=== PATIENT | female | born 1930 | race Caucasian/White ===

== ENCOUNTER 2016-04-29 21:57 | Inpatient (IN) | payer BC, MEDICAID ==
[~2016-04-29] VITALS: Ht 154.9 cm; Wt 70.0 kg
[2016-04-29] MEDS ORDERED: ACETAMINOPHEN 325 MG TAB ONE (22:18)
[2016-04-29] MEDS ORDERED: SODIUM CHLORIDE 0.9% 1,000 ML ONE (22:27)
[2016-04-29] MEDS ORDERED: CEFTRIAXONE 1 GM VIAL ONE (23:31)
[2016-04-29] MEDS ORDERED: SODIUM CHLORIDE 0.9% 250 ML IV ONE (23:31)
[2016-04-29] MEDS ORDERED: AZITHROMYCIN 500 MG VIAL IV ONE (23:31)
[2016-04-29] MEDS ORDERED: SODIUM CHLORIDE 0.9% 100 ML IV ONE (23:32)
[2016-04-29] MEDS ORDERED: LACT RINGERS 1,000 ML IV SCH (23:45)
[2016-04-29] MEDS ORDERED: BISACODYL 10 MG SUPP RECTAL PRN (23:45)
[2016-04-29] MEDS ORDERED: MAG HYDROX 30 ML UDC PO PRN (23:45)
[2016-04-29] MEDS ORDERED: SALINE FLUSH 10 ML FLUSH PRN (23:45)
[2016-04-29] MEDS ORDERED: BISACODYL EC 5 MG TAB PO PRN (23:45)
[2016-04-29] MEDS ORDERED: ALU/MAG/SIM 30 ML UDC PO PRN (23:45)
[2016-04-30] VITALS (8 sets, daily range): BP systolic 124–150; RESP 17–22; TEMP 97.4–98.5; Ht 154.9 cm; Wt 70.0 kg
[2016-04-30] MEDS ORDERED: PHARMACY TO DOSE ZOSYN IV SCH (00:15)
[2016-04-30] MEDS ORDERED: PHARMACY TO DOSE VANCOMYCIN IV SCH (00:15)
[2016-04-30] MEDS: NEB-XOPENEX 1.25 MG/3 ML INH SCH ×5 (00:30→23:30)
[2016-04-30] MEDS: NEB-ATROVENT INH SCH ×6 (03:00→23:30)
[2016-04-30] MEDS ORDERED: VANCOMYCIN 1,250 MG in SODIUM CHLORIDE 0.9% 250 ML IV ONE (03:50)
[2016-04-30] MEDS ORDERED: LACT RINGERS 1,000 ML IV SCH (04:40)
[2016-04-30] MEDS: PIPERACIL/TAZO 2.25GM/50ML 50 ML IV SCH ×4 (05:54→23:58)
[2016-04-30] MEDS: SODIUM CHLORIDE 0.9% FLUSH BAG 500 ML IV SCH (05:54)
[2016-04-30] MEDS: SALINE FLUSH 10 ML FLUSH SCH ×2 (08:00→20:00)
[2016-04-30] MEDS: ENOXAPARIN 30 MG/0.3 ML SYR SUBQ SCH (09:00)
[2016-04-30] MEDS ORDERED: LORAZEPAM 0.5 MG TAB PO PRN (12:15)
[2016-04-30] MEDS ORDERED: ARTIF TEARS OP SOLN 0.4ML EYE EACH PRN (12:15)
[2016-04-30] MEDS ORDERED: GERI LANTA PO PRN (12:15)
[2016-04-30] MEDS ORDERED: [UNRECOGNIZED DRUG - OTHER] RC PRN (12:15)
[2016-04-30] MEDS ORDERED: HYDROCORT TOPICAL PRN (12:15)
[2016-04-30] MEDS ORDERED: ACETAMINOPHEN 325 MG TAB PO PRN (12:15)
[2016-04-30] MEDS ORDERED: MISSING DOSE XX ONE (18:10)
[2016-04-30] MEDS: CILOSTAZOL 100 MG TAB PO SCH (20:01)
[2016-04-30] MEDS: POLYETHYLENE GLYCOL 17 GM PACKET PO SCH (20:01)
[2016-04-30] MEDS: PREGABALIN 75 MG CAP PO SCH (20:01)
[2016-04-30] MEDS: FAMOTIDINE 20 MG TAB PO SCH (20:01)
[2016-04-30] MEDS: OXYCODONE 5 MG TAB PO PRN (21:19)
[2016-05-01] VITALS (35 sets, daily range): BP systolic 117–173; RESP 17–18; TEMP 97.9–98.5
[2016-05-01] MEDS: NEB-ATROVENT INH SCH ×6 (02:40→22:57)
[2016-05-01] MEDS: SODIUM CHLORIDE 0.9% FLUSH BAG 500 ML IV SCH (05:12)
[2016-05-01] MEDS: PIPERACIL/TAZO 2.25GM/50ML 50 ML IV SCH (05:16)
[2016-05-01] MEDS: NEB-XOPENEX 1.25 MG/3 ML INH SCH ×4 (07:08→22:57)
[2016-05-01] MEDS: SALINE FLUSH 10 ML FLUSH SCH ×2 (08:00→20:00)
[2016-05-01] MEDS: CILOSTAZOL 100 MG TAB PO SCH ×2 (09:27→20:33)
[2016-05-01] MEDS: PREGABALIN 75 MG CAP PO SCH ×2 (09:27→20:33)
[2016-05-01] MEDS: LORATADINE 10 MG TAB PO SCH (09:27)
[2016-05-01] MEDS: ENOXAPARIN 30 MG/0.3 ML SYR SUBQ SCH (09:28)
[2016-05-01] MEDS ORDERED: VANCOMYCIN 1,000 MG in SODIUM CHLORIDE 0.9% 250 ML IV ONE (09:55)
[2016-05-01] MEDS ORDERED: DILTIAZEM 125 MG in DEXTROSE 125 ML IV ONE (10:10)
[2016-05-01] MEDS: CARDIZEM 1 MG/ML DRIP 125 ML IV SCH (11:12)
[2016-05-01] MEDS ORDERED: METOPROLOL XL 25 MG TAB PO SCH (11:15)
[2016-05-01] MEDS ORDERED: PHARMACY TO DOSE ANTIBIOTIC XX SCH (11:30)
[2016-05-01] MEDS ORDERED: ENOXAPARIN 30 MG/0.3 ML SYR SUBQ ONE (12:05)
[2016-05-01] MEDS: PIPERACIL/TAZO 3.375GM/50ML 50 ML IV SCH ×2 (14:45→19:46)
[2016-05-01] MEDS ORDERED: MISSING DOSE XX ONE (20:25)
[2016-05-01] MEDS: POLYETHYLENE GLYCOL 17 GM PACKET PO SCH (20:33)
[2016-05-01] MEDS: FAMOTIDINE 20 MG TAB PO SCH (20:35)
[2016-05-01] MEDS: METOPROLOL TART 50 MG TAB PO SCH ×2 (20:39→20:42)
[2016-05-01] MEDS: OXYCODONE 5 MG TAB PO PRN (20:40)
[2016-05-02] VITALS (57 sets, daily range): BP systolic 101–173; RESP 18; TEMP 97.5–98
[2016-05-02] MEDS: PIPERACIL/TAZO 3.375GM/50ML 50 ML IV SCH ×2 (01:22→04:57)
[2016-05-02] MEDS ORDERED: LORAZEPAM 2 MG/ML VIAL ONE (01:35)
[2016-05-02] MEDS ORDERED: LORAZEPAM 2 MG/ML VIAL IV ONE (01:35)
[2016-05-02] MEDS: NEB-ATROVENT INH SCH ×6 (02:57→23:14)
[2016-05-02] MEDS: HALOPERIDOL 5 MG/ML VIAL IV PRN ×4 (04:46→22:06)
[2016-05-02] MEDS: SODIUM CHLORIDE 0.9% FLUSH BAG 500 ML IV SCH (05:01)
[2016-05-02] MEDS ORDERED: HALOPERIDOL 5 MG/ML VIAL IV ONE (06:35)
[2016-05-02] MEDS: SALINE FLUSH 10 ML FLUSH SCH ×2 (08:00→20:00)
[2016-05-02] MEDS: NEB-XOPENEX 1.25 MG/3 ML INH SCH ×4 (08:01→23:14)
[2016-05-02] MEDS: LORATADINE 10 MG TAB PO SCH (08:46)
[2016-05-02] MEDS: CILOSTAZOL 100 MG TAB PO SCH ×2 (08:46→20:31)
[2016-05-02] MEDS: PREGABALIN 75 MG CAP PO SCH (08:47)
[2016-05-02] MEDS: METOPROLOL TART 50 MG TAB PO SCH (08:47)
[2016-05-02] MEDS ORDERED: ENOXAPARIN 60 MG/0.6 ML SYR SUBQ SCH ×2 (09:00→21:00)
[2016-05-02] MEDS ORDERED: METOPROLOL TART 50 MG TAB PO ONE (11:20)
[2016-05-02] MEDS ORDERED: MISSING DOSE XX ONE (14:05)
[2016-05-02] MEDS: CARDIZEM 1 MG/ML DRIP 125 ML IV SCH (14:26)
[2016-05-02] MEDS: CEFTRIAXONE 1 GM in SODIUM CHLORIDE 0.9% 50 ML IV SCH (14:35)
[2016-05-02] MEDS ORDERED: ALPRAZOLAM 0.25 MG TAB PO PRN (17:10)
[2016-05-02] MEDS: APIXABAN 5 MG TAB PO SCH (20:31)
[2016-05-02] MEDS: METOPROLOL TART 100 MG TAB PO SCH (20:31)
[2016-05-02] MEDS: FAMOTIDINE 20 MG TAB PO SCH (20:31)
[2016-05-02] MEDS: POLYETHYLENE GLYCOL 17 GM PACKET PO SCH (20:31)
[2016-05-03] VITALS (32 sets, daily range): BP systolic 96–171; RESP 16–22; TEMP 96.8–98
[2016-05-03] MEDS: NEB-ATROVENT INH SCH ×6 (02:13→23:10)
[2016-05-03] MEDS: HALOPERIDOL 5 MG/ML VIAL IV PRN (03:28)
[2016-05-03] MEDS ORDERED: ZIPRASIDONE 20 MG INJ IM ONE (03:50)
[2016-05-03] MEDS ORDERED: METOPROLOL 5 MG/5 ML VIAL IV ONE ×4 (04:45→05:00)
[2016-05-03] MEDS: SODIUM CHLORIDE 0.9% FLUSH BAG 500 ML IV SCH (05:24)
[2016-05-03] MEDS: SALINE FLUSH 10 ML FLUSH SCH ×2 (07:18→20:50)
[2016-05-03] MEDS: PIPERACIL/TAZO 3.375GM/50ML 50 ML IV SCH (07:27)
[2016-05-03] MEDS: NEB-XOPENEX 1.25 MG/3 ML INH SCH ×4 (07:42→23:10)
[2016-05-03] MEDS: APIXABAN 5 MG TAB PO SCH ×2 (08:43→20:49)
[2016-05-03] MEDS: METOPROLOL TART 100 MG TAB PO SCH ×2 (08:43→20:49)
[2016-05-03] MEDS: CILOSTAZOL 100 MG TAB PO SCH ×2 (08:43→20:49)
[2016-05-03] MEDS: LORATADINE 10 MG TAB PO SCH (08:43)
[2016-05-03] MEDS: CEFTRIAXONE 1 GM in SODIUM CHLORIDE 0.9% 50 ML IV SCH (08:43)
[2016-05-03] MEDS: DILTIAZEM CD 180 MG CAP PO SCH (11:06)
[2016-05-03] MEDS: SACCHA BOULARDII 250MG CAP PO SCH ×2 (12:10→20:48)
[2016-05-03] MEDS: FAMOTIDINE 20 MG TAB PO SCH (20:48)
[2016-05-04] VITALS (7 sets, daily range): BP systolic 110–145; RESP 18–22; TEMP 97.3–98.9
[2016-05-04] MEDS: NEB-ATROVENT INH SCH ×6 (02:56→22:48)
[2016-05-04] MEDS: SODIUM CHLORIDE 0.9% FLUSH BAG 500 ML IV SCH (05:37)
[2016-05-04] MEDS: NEB-XOPENEX 1.25 MG/3 ML INH SCH ×4 (07:15→22:48)
[2016-05-04] MEDS: SALINE FLUSH 10 ML FLUSH SCH ×2 (07:57→20:54)
[2016-05-04] MEDS: SACCHA BOULARDII 250MG CAP PO SCH ×2 (08:41→20:54)
[2016-05-04] MEDS: APIXABAN 5 MG TAB PO SCH ×2 (08:41→20:54)
[2016-05-04] MEDS: CILOSTAZOL 100 MG TAB PO SCH ×2 (08:41→20:53)
[2016-05-04] MEDS: LORATADINE 10 MG TAB PO SCH (08:41)
[2016-05-04] MEDS: METOPROLOL TART 100 MG TAB PO SCH ×2 (08:41→20:53)
[2016-05-04] MEDS: CEFTRIAXONE 1 GM in SODIUM CHLORIDE 0.9% 50 ML IV SCH (08:41)
[2016-05-04] MEDS: DILTIAZEM CD 180 MG CAP PO SCH (08:41)
[2016-05-04] MEDS ORDERED: SODIUM CHLORIDE 0.9% 1,000 ML IV SCH ×2 (13:35→18:10)
[2016-05-04] MEDS ORDERED: SODIUM CHLORIDE 0.9% 500 ML IV ONE (18:10)
[2016-05-04] MEDS: FAMOTIDINE 20 MG TAB PO SCH (20:53)
[2016-05-05] MEDS: NEB-ATROVENT INH SCH ×6 (03:16→22:45)
[2016-05-05 04:03] VITALS: BP_SYST 155; RESP 17; TEMP 97.3
[2016-05-05] MEDS: SODIUM CHLORIDE 0.9% FLUSH BAG 500 ML IV SCH (06:00)
[2016-05-05] MEDS: NEB-XOPENEX 1.25 MG/3 ML INH SCH ×4 (06:22→22:46)
[2016-05-05 07:34] VITALS: BP_SYST 149; RESP 18; TEMP 98.2
[2016-05-05] MEDS: SALINE FLUSH 10 ML FLUSH SCH ×2 (08:24→21:17)
[2016-05-05] MEDS: CILOSTAZOL 100 MG TAB PO SCH ×2 (08:25→21:15)
[2016-05-05] MEDS: METOPROLOL TART 100 MG TAB PO SCH ×2 (08:25→21:15)
[2016-05-05] MEDS: LORATADINE 10 MG TAB PO SCH (08:25)
[2016-05-05] MEDS: SACCHA BOULARDII 250MG CAP PO SCH ×2 (08:25→21:15)
[2016-05-05] MEDS: APIXABAN 5 MG TAB PO SCH ×2 (08:25→21:15)
[2016-05-05] MEDS: DILTIAZEM CD 180 MG CAP PO SCH (08:25)
[2016-05-05] MEDS: CEFTRIAXONE 1 GM in SODIUM CHLORIDE 0.9% 50 ML IV SCH (08:37)
[2016-05-05 11:08] VITALS: BP_SYST 132; RESP 18; TEMP 97.8
[2016-05-05] MEDS ORDERED: MISSING DOSE XX ONE ×2 (13:55→17:35)
[2016-05-05 14:41] VITALS: BP_SYST 138; RESP 18; TEMP 97.6
[2016-05-05 20:19] VITALS: BP_SYST 158; RESP 18; TEMP 97.4
[2016-05-05] MEDS: ERGOCALCIFEROL 50,000 UNITS (1.25 MG) CAP PO SCH (21:14)
[2016-05-05] MEDS: FAMOTIDINE 20 MG TAB PO SCH (21:15)
[2016-05-06] VITALS (8 sets, daily range): BP systolic 122–157; RESP 18–24; TEMP 97.8–99.4
[2016-05-06] MEDS: NEB-ATROVENT INH SCH ×6 (02:32→23:42)
[2016-05-06] MEDS: SODIUM CHLORIDE 0.9% FLUSH BAG 500 ML IV SCH (05:40)
[2016-05-06] MEDS: NEB-XOPENEX 1.25 MG/3 ML INH SCH ×4 (07:01→23:42)
[2016-05-06] MEDS: LORATADINE 10 MG TAB PO SCH (08:16)
[2016-05-06] MEDS: SALINE FLUSH 10 ML FLUSH SCH (08:16)
[2016-05-06] MEDS: SACCHA BOULARDII 250MG CAP PO SCH ×2 (08:16→20:35)
[2016-05-06] MEDS: DILTIAZEM CD 180 MG CAP PO SCH (08:17)
[2016-05-06] MEDS: CILOSTAZOL 100 MG TAB PO SCH ×2 (08:17→20:35)
[2016-05-06] MEDS: APIXABAN 5 MG TAB PO SCH ×2 (08:17→20:35)
[2016-05-06] MEDS: METOPROLOL TART 100 MG TAB PO SCH ×2 (08:17→20:35)
[2016-05-06] MEDS: CEFTRIAXONE 1 GM in SODIUM CHLORIDE 0.9% 50 ML IV SCH (08:45)
[2016-05-06] MEDS ORDERED: DILTIAZEM CD 240 MG CAP PO SCH (10:01)
[2016-05-06] MEDS ORDERED: DILTIAZEM CD 120 MG CAP PO SCH (10:40)
[2016-05-06] MEDS ORDERED: DILTIAZEM 60 MG TAB PO ONE (10:45)
[2016-05-06] MEDS: FAMOTIDINE 20 MG TAB PO SCH (20:35)
[2016-05-07] MEDS: NEB-ATROVENT INH SCH ×6 (03:20→23:17)
[2016-05-07 03:56] VITALS: BP_SYST 144; RESP 17; TEMP 98.1
[2016-05-07] MEDS: SALINE FLUSH 10 ML FLUSH SCH ×3 (05:28→20:55)
[2016-05-07] MEDS: SODIUM CHLORIDE 0.9% FLUSH BAG 500 ML IV SCH (05:51)
[2016-05-07] MEDS: NEB-XOPENEX 1.25 MG/3 ML INH SCH ×4 (07:07→23:18)
[2016-05-07 07:36] VITALS: BP_SYST 167; RESP 18; TEMP 98.6
[2016-05-07] MEDS: SACCHA BOULARDII 250MG CAP PO SCH ×2 (08:42→20:55)
[2016-05-07] MEDS: DILTIAZEM CD 240 MG CAP PO SCH (08:42)
[2016-05-07] MEDS: CILOSTAZOL 100 MG TAB PO SCH ×2 (08:42→20:55)
[2016-05-07] MEDS: METOPROLOL TART 100 MG TAB PO SCH ×2 (08:42→20:55)
[2016-05-07] MEDS: APIXABAN 5 MG TAB PO SCH ×2 (08:42→20:55)
[2016-05-07] MEDS: CEFTRIAXONE 1 GM in SODIUM CHLORIDE 0.9% 50 ML IV SCH (08:53)
[2016-05-07 11:45] VITALS: BP_SYST 160; RESP 18; TEMP 98.1
[2016-05-07 15:00] VITALS: BP_SYST 154; RESP 18; TEMP 98.4
[2016-05-07] MEDS: ACETAMINOPHEN 500 MG TAB PO SCH ×2 (19:23→23:06)
[2016-05-07 20:00] VITALS: BP_SYST 120; RESP 22; TEMP 97.4
[2016-05-07] MEDS: TRAZODONE 50 MG TAB PO SCH (20:55)
[2016-05-07] MEDS: FAMOTIDINE 20 MG TAB PO SCH (20:55)
[2016-05-07] MEDS: HALOPERIDOL 5 MG/ML VIAL IM PRN (20:56)
[2016-05-08] VITALS (7 sets, daily range): BP systolic 109–156; RESP 16–24; TEMP 97.3–98.3
[2016-05-08] MEDS: SODIUM CHLORIDE 0.9% FLUSH BAG 500 ML IV SCH (00:28)
[2016-05-08] MEDS: NEB-ATROVENT INH SCH ×4 (02:51→14:30)
[2016-05-08] MEDS: NEB-XOPENEX 1.25 MG/3 ML INH SCH ×2 (07:30→11:16)
[2016-05-08] MEDS: CEFTRIAXONE 1 GM in SODIUM CHLORIDE 0.9% 50 ML IV SCH (08:23)
[2016-05-08] MEDS: SALINE FLUSH 10 ML FLUSH SCH ×2 (08:23→20:00)
[2016-05-08] MEDS: CILOSTAZOL 100 MG TAB PO SCH ×2 (08:24→21:58)
[2016-05-08] MEDS: APIXABAN 5 MG TAB PO SCH ×2 (08:24→22:00)
[2016-05-08] MEDS: METOPROLOL TART 100 MG TAB PO SCH ×2 (08:24→21:58)
[2016-05-08] MEDS: DILTIAZEM CD 240 MG CAP PO SCH (08:24)
[2016-05-08] MEDS: SACCHA BOULARDII 250MG CAP PO SCH ×2 (08:24→21:58)
[2016-05-08] MEDS: ACETAMINOPHEN 500 MG TAB PO SCH ×2 (08:24→16:21)
[2016-05-08] MEDS ORDERED: MISSING DOSE XX ONE ×3 (17:45→23:15)
[2016-05-08] MEDS: POTASSIUM CHLORIDE VIAL 10 MEQ, LIDOCAINE 1% 1 ML in SODIUM CHLORIDE 0.9% 50 ML IV SCH ×3 (18:11→21:00)
[2016-05-08] MEDS: FAMOTIDINE 20 MG TAB PO SCH (21:58)
[2016-05-08] MEDS: TRAZODONE 50 MG TAB PO SCH (21:58)
[2016-05-09] VITALS (7 sets, daily range): BP systolic 125–153; RESP 16–18; TEMP 97.4–98.5
[2016-05-09] MEDS: MICONAZOLE 2% PWD TOPICAL SCH ×3 (03:27→20:51)
[2016-05-09] MEDS: SODIUM CHLORIDE 0.9% FLUSH BAG 500 ML IV SCH (06:39)
[2016-05-09] MEDS: SALINE FLUSH 10 ML FLUSH SCH ×2 (08:36→20:51)
[2016-05-09] MEDS: CEFTRIAXONE 1 GM in SODIUM CHLORIDE 0.9% 50 ML IV SCH (08:37)
[2016-05-09] MEDS: DILTIAZEM CD 240 MG CAP PO SCH (08:37)
[2016-05-09] MEDS: ACETAMINOPHEN 500 MG TAB PO SCH ×3 (08:37→16:25)
[2016-05-09] MEDS: METOPROLOL TART 100 MG TAB PO SCH ×2 (08:38→20:48)
[2016-05-09] MEDS: CILOSTAZOL 100 MG TAB PO SCH ×2 (08:38→20:47)
[2016-05-09] MEDS: APIXABAN 5 MG TAB PO SCH ×2 (08:38→20:49)
[2016-05-09] MEDS: SACCHA BOULARDII 250MG CAP PO SCH ×2 (08:38→20:48)
[2016-05-09] MEDS: FAMOTIDINE 20 MG TAB PO SCH (20:48)
[2016-05-09] MEDS: TRAZODONE 50 MG TAB PO SCH (20:48)
[2016-05-10] VITALS (7 sets, daily range): BP systolic 148–163; RESP 18–32; TEMP 97.3–99.7
[2016-05-10] MEDS: ACETAMINOPHEN 500 MG TAB PO SCH ×3 (00:22→16:00)
[2016-05-10] MEDS: SODIUM CHLORIDE 0.9% FLUSH BAG 500 ML IV SCH (06:00)
[2016-05-10] MEDS: SACCHA BOULARDII 250MG CAP PO SCH ×2 (09:00→21:12)
[2016-05-10] MEDS: METOPROLOL TART 100 MG TAB PO SCH ×2 (09:00→21:10)
[2016-05-10] MEDS: MICONAZOLE 2% PWD TOPICAL SCH ×2 (09:00→21:14)
[2016-05-10] MEDS: CILOSTAZOL 100 MG TAB PO SCH ×2 (09:00→21:10)
[2016-05-10] MEDS: APIXABAN 5 MG TAB PO SCH ×2 (09:00→21:11)
[2016-05-10] MEDS: SALINE FLUSH 10 ML FLUSH SCH ×2 (11:42→21:15)
[2016-05-10] MEDS: ACETAMINOPHEN 325 MG TAB PO PRN (15:46)
[2016-05-10] MEDS: HALOPERIDOL 5 MG/ML VIAL IM PRN (16:45)
[2016-05-10] MEDS: FAMOTIDINE 20 MG TAB PO SCH (21:10)
[2016-05-10] MEDS: QUEtiapine 25 MG TAB PO SCH (21:10)
[2016-05-11] VITALS (10 sets, daily range): BP systolic 127–168; RESP 20–32; TEMP 97.6–98.5
[2016-05-11] MEDS: ACETAMINOPHEN 500 MG TAB PO SCH ×3 (01:44→16:40)
[2016-05-11] MEDS: SODIUM CHLORIDE 0.9% FLUSH BAG 500 ML IV SCH (05:54)
[2016-05-11] MEDS: DILTIAZEM CD 240 MG CAP PO SCH (07:38)
[2016-05-11] MEDS: CILOSTAZOL 100 MG TAB PO SCH ×2 (09:11→22:03)
[2016-05-11] MEDS: SACCHA BOULARDII 250MG CAP PO SCH ×2 (09:11→22:02)
[2016-05-11] MEDS: METOPROLOL TART 100 MG TAB PO SCH ×2 (09:12→22:03)
[2016-05-11] MEDS: SALINE FLUSH 10 ML FLUSH SCH ×2 (09:12→22:04)
[2016-05-11] MEDS: MICONAZOLE 2% PWD TOPICAL SCH ×2 (09:12→22:03)
[2016-05-11] MEDS: APIXABAN 5 MG TAB PO SCH ×2 (09:12→22:02)
[2016-05-11] MEDS: KCL CR 20 MEQ TAB PO SCH (12:31)
[2016-05-11] MEDS: POTASSIUM CHLORIDE VIAL 10 MEQ, LIDOCAINE 1% 1 ML in SODIUM CHLORIDE 0.9% 50 ML IV SCH ×3 (13:31→16:39)
[2016-05-11] MEDS: FAMOTIDINE 20 MG TAB PO SCH (22:03)
[2016-05-11] MEDS: QUEtiapine 25 MG TAB PO SCH (22:03)
[2016-05-12] MEDS: ACETAMINOPHEN 500 MG TAB PO SCH ×5 (01:47→23:54)
[2016-05-12 03:01] VITALS: BP_SYST 135; RESP 20; TEMP 97.9
[2016-05-12] MEDS: SODIUM CHLORIDE 0.9% FLUSH BAG 500 ML IV SCH (06:00)
[2016-05-12 07:14] VITALS: BP_SYST 146; RESP 22; TEMP 97.3
[2016-05-12] MEDS: SALINE FLUSH 10 ML FLUSH SCH ×2 (08:54→21:57)
[2016-05-12] MEDS: APIXABAN 5 MG TAB PO SCH ×2 (08:55→21:57)
[2016-05-12] MEDS: CILOSTAZOL 100 MG TAB PO SCH ×2 (08:55→21:57)
[2016-05-12] MEDS: KCL CR 20 MEQ TAB PO SCH (08:55)
[2016-05-12] MEDS: METOPROLOL TART 100 MG TAB PO SCH ×2 (08:55→21:57)
[2016-05-12] MEDS: SACCHA BOULARDII 250MG CAP PO SCH ×2 (08:55→21:57)
[2016-05-12] MEDS: MICONAZOLE 2% PWD TOPICAL SCH ×2 (09:00→21:58)
[2016-05-12 11:27] VITALS: BP_SYST 121; RESP 18; TEMP 97.6
[2016-05-12] MEDS: ERGOCALCIFEROL 50,000 UNITS (1.25 MG) CAP PO SCH ×2 (12:03→12:10)
[2016-05-12 15:55] VITALS: BP_SYST 148; RESP 18; TEMP 97.9
[2016-05-12 19:15] VITALS: BP_SYST 160; RESP 16; TEMP 98.3
[2016-05-12] MEDS: FAMOTIDINE 20 MG TAB PO SCH (21:57)
[2016-05-12] MEDS: QUEtiapine 25 MG TAB PO SCH (21:57)
[2016-05-12 22:19] VITALS: BP_SYST 154; RESP 18; TEMP 98.8
[2016-05-13] VITALS (8 sets, daily range): BP systolic 113–177; RESP 16–18; TEMP 97.2–98.2
[2016-05-13] MEDS: SODIUM CHLORIDE 0.9% FLUSH BAG 500 ML IV SCH (07:26)
[2016-05-13] MEDS: ACETAMINOPHEN 500 MG TAB PO SCH ×2 (08:00→16:00)
[2016-05-13] MEDS: SALINE FLUSH 10 ML FLUSH SCH (08:00)
[2016-05-13] MEDS: KCL CR 20 MEQ TAB PO SCH (10:50)
[2016-05-13] MEDS: SACCHA BOULARDII 250MG CAP PO SCH (10:51)
[2016-05-13] MEDS: APIXABAN 5 MG TAB PO SCH (10:51)
[2016-05-13] MEDS: CILOSTAZOL 100 MG TAB PO SCH (10:52)
[2016-05-13] MEDS: ACETAMINOPHEN 325 MG TAB PO PRN (10:53)
[2016-05-13] MEDS: METOPROLOL TART 100 MG TAB PO SCH (10:54)
[2016-05-13] MEDS: MICONAZOLE 2% PWD TOPICAL SCH (14:48)
== END 2016-05-13 19:12 | DRG 682 ==
LOC: ENRESERVTM → CANRESERV → ENRESERVDT → ER 21:57 → EMR 23:42 → ENPENDDIS 23:42 → PCU2 04-30 02:26 → 3NT 05-08 19:15
PROVIDERS: ADMIT Family Medicine; ATTEND Family Medicine
DX: N17.9 Acute kidney failure, unspecified (principal); J18.9 Pneumonia, unspecified organism; G93.41 Metabolic encephalopathy; E22.2 Syndrome of inappropriate secretion of antidiuretic hormone; K52.1 Toxic gastroenteritis and colitis; R41.0 Disorientation, unspecified; E87.6 Hypokalemia; I48.0 Paroxysmal atrial fibrillation; Z79.01 Long term (current) use of anticoagulants; M81.0 Age-related osteoporosis without current pathological fracture; Z85.3 Personal history of malignant neoplasm of breast; Z90.12 Acquired absence of left breast and nipple; K44.9 Diaphragmatic hernia without obstruction or gangrene; R33.9 Retention of urine, unspecified; T36.95XA Adverse effect of unspecified systemic antibiotic, initial encounter; I10 Essential (primary) hypertension; Z80.1 Family history of malignant neoplasm of trachea, bronchus and lung; W19.XXXA Unspecified fall, initial encounter; H91.90 Unspecified hearing loss, unspecified ear
CPT/HCPCS: 36415; 36600; 70450; 71010; 71250; 74176; 76770; 80048; 80051; 80053; 80061; 80202; 81001; 82140; 82330; 82553; 82803; 83605; 83735; 83880; 84145; 84300; 84439; 84443; 84484; 85025; 85652; 86141; 87040; 87081; 87088; 87278; 87299; 87493; 87804; 93005; 93306; 94640; 94799; 96361; 96365; 96366; 96367; 99223; 99232; 99233; 99239